=== PATIENT | male | born 1965 | race Caucasian/White ===

== ENCOUNTER 2019-09-05 14:24 | Observation (INO) | payer MEDICARE, SELFPAY ==
[2019-09-05] VITALS (26 sets, daily range): BP systolic 133–161; BP diastolic 76–107; PULSE 39–75; RESP 11–22; TEMP 36.2–36.8; O2SAT 82–100; BMI 19.4
--- NOTE | ~2019-09-05 | CT_ITS ---
EXAMINATION: CTA brain carotid DATE: 09/05/2019 15:49 INDICATION: Dizziness. TECHNIQUE: Computed tomographic angiography (CTA) of the head was performed without and with 100 mL O mnipaque-350 intravenous contrast. CTA of the neck was performed with intravenous contrast. Automated exposure control and iterative reconstruction technique were employed. The dose-length product was 1 579.55 mGy-cm. Maximum intensity projection and volume rendered 3D-reconstructions were created by sarah pfeiffer technologist on a separate workstation. COMPARISON: None. FINDINGS: HEAD CTA: There is chronic encephalomalacia in peripheral left temporal lobe. There is no intracrania l hemorrhage, acute infarction, or abnormal intracranial mass lesion. The ventricles are normal in si ze. There is mild mucosal thickening in the paranasal sinuses. The mastoid air cells are normal. The orbits are normal. The vertebral arteries are codominant. There is no significant stenosis of basilar artery or the posterior cerebral arteries. The posterior communicating arteries are normal. There is no significant stenosis of the intracranial internal carotid arteries or anterior or middle cerebral arteries. Anterior communicating artery is normal. There is no aneurysm. NECK CTA: There is mild emphysema. There are no pathologically enlarged lymph nodes. There is no sign ificant stenosis of the vertebral arteries. There is plaque in the proximal internal carotid arteries . There is 5% stenosis of the proximal right internal carotid artery relative to normal distal artery lumen diameter (NASCET criteria). There is 5% stenosis of the proximal left internal carotid artery relative to normal distal artery lumen diameter. There is severe cervical spondylosis. IMPRESSION: 1. Chronic encephalomalacia in peripheral left temporal lobe. 2. No aneurysm or significant intracranial arterial stenosis. 3. 5% stenosis of the proximal right internal carotid artery relative to normal distal artery lumen d iameter (NASCET criteria). 4. 5% stenosis of the proximal left internal carotid artery relative to normal distal artery lumen di ameter. Reviewed, dictated and finalized at location A. IMPRESSION: 1. Chronic encephalomalacia in peripheral left temporal lobe. 2. No aneurysm or significant intracranial arterial stenosis. 3. 5% stenosis of the proximal right internal carotid artery relative to normal distal artery lumen diameter (NASCET criteria). 4. 5% stenosis of the proximal left internal carotid artery relative to normal distal artery lumen diameter.
--- NOTE | 2019-09-05 14:32 | ECG_ITS ---
Measurements Intervals [place] Rate: 62 P: 79 ND: 181 QRS: 81 QRSD: 98 T: 65 QT: 393 QTc: 400 Interpretive Statements SINUS RHYTHM ATRIAL PREMATURE COMPLEX DELAYED PRECORDIAL R/S TRANSITION BASELINE ARTIFACT- I, II, III, AVR, AVL, AVF, V1 BORDERLINE ECG Electronically Signed On 09-05-2019 16:49:52 CDT by Hira Ram D.O.
--- NOTE | 2019-09-05 14:42 | ED.GENADULT ---
HPI - General Adult General Chief complaint: Dizziness <Neto Moe PA-C - Last Filed: 09/05/19 17:11> Stated complaint: Dizzy, Fall <Neto Moe PA-C - Last Filed: 09/05/19 17:11> Time Seen by Provider: 09/05/19 14:26 <Neto Moe PA-C - Last Filed: 09/05/19 17:11> Source: patient, family and old records reviewed <Neto Moe PA-C - Last Filed: 09/05/19 17:11> Mode of arrival: ambulatory <Neto Moe PA-C - Last Filed: 09/05/19 17:11> Limitations: no limitations <Neto Moe PA-C - Last Filed: 09/05/19 17:11> History of Present Illness HPI narrative: Patient is a 54-year-old male who presents to emergency department for evaluation of dizziness for the last several days noting that yesterday his dizziness resulted in a fall denies injuries related to the fall notes that he has felt lightheaded and dizzy with unsteady gait with some weakness in the legs patient denies similar occurrence in the past. Patient did just recently start his Tegretol back on Sunday and is followed by neurology Dr. Armenta. Patient on arrival to emergency department with family in no distress. Patient denies any pain but notes mild dizziness. Patient denies any recent illness or sick contact <Neto Moe PA-C - Last Filed: 09/05/19 17:11> Related Data Home medications: Home Medications Medication Instructions Recorded Confirmed carbamazepine [Tegretol XR] 400 mg PO BID 09/05/19 <Neto Moe PA-C - Last Filed: 09/05/19 17:11> Allergies/adverse reactions: Allergies Allergy/AdvReac Type Severity Reaction Status Date / Time Penicillins Allergy Unknown Verified 09/05/19 14:38 <Neto Moe PA-C - Last Filed: 09/05/19 17:11> Review of Systems Review of Systems: All systems reviewed & are unremarkable except as noted in HPI and below <Neto Moe PA-C - Last Filed: 09/05/19 17:11> [facility] Past Medical History Medical History: Medical History (Updated 09/05/19 @ 17:11 by Neto Moe PA-C) Seizures <Neto Moe PA-C - Last Filed: 09/05/19 17:11> Family History Family History: Family History (Updated 09/05/19 @ 18:18 by Rachel Johnston RN) Father Hypertension High cholesterol Mother High cholesterol <Neto Moe PA-C - Last Filed: 09/05/19 17:11> Social History Social History: Social History (Updated 09/05/19 @ 14:43 by Neto Moe PA-C) Smoking packs per day: 1.5 Smoking cigarettes per day: 30.0 Smoking status: Current every day smoker Tobacco type: cigarettes Drinks per week: 2 Substance use: current Substance use type: marijuana Living arrangements: with family Gender identity (if verbalized by the patient): Male Spiritual care concerns: No <Neto Moe PA-C - Last Filed: 09/05/19 17:11> Exam Narrative: Exam Narrative: GENERAL: Well-appearing, well-nourished, and in no acute distress. HEAD: Normocephalic, atraumatic. EYES: PERRLA and EOMI. ENT: Nares clear, no rhinorrhea or epistaxis. Mucous membranes moist. Oropharynx without tonsillar hypertrophy exudate or other lesions. NECK: Supple. No adenopathy or masses. No carotid bruits or JVD CHEST: Clear to auscultation. No respiratory distress. No wheezes rales or rhonchi HEART: Regular rate and rhythm. No murmur heard. Normal peripheral pulses. ABDOMEN: Soft, nontender, nondistended EXTREMITIES: Normal range of motion. No edema. SKIN: Warm, dry, no rash. NEURO: No focal deficits. Alert and oriented x3. Cranial nerves II through XII grossly intact. Normal speech. Cerebellar intact PSYCH: Normal mood and affect. <Neto Moe PA-C - Last Filed: 09/05/19 17:11> Course Course Emergency Course: Patient in the room aware of case findings treatment plan and diagnosis recommendations of his neurologist agreeing to stay in hospital <Neto Moe PA-C - Last Filed:
[2019-09-05] MEDS: SODIUM CHLORIDE 0.9% IV 1,000 ML 999 ML IV CONT (14:45)
[2019-09-05 14:58] LABS: Glucose Point of Care 81 (65-105)
[2019-09-05 14:59] LABS: Basophils Absolute Auto 0.1 K/mm3 (0.0-0.1); Basophils Percent Auto 0.8 % (0.2-1.2); Eosinophils Absolute Auto 0.1 K/mm3 (0-0.3); Eosinophils Percent Auto 1.3 % (0-4.4); Hematocrit 39.8 % (42.0-52.0); Hemoglobin 13.9 g/dL (14.0-18.0); Immature Granulocyte Absolute 0.01 K/mm3 (0.00-0.031); Immature Granulocyte Percent A 0.2 % (0-0.5); Lymphocytes Absolute Auto 2.01 K/mm3 (0.9-3.2); Lymphocytes Percent Auto 32.5 % (18.3-44.2); Mean Corpuscular HGB Conc 34.9 g/dl (32-36); Mean Corpuscular Volume 91.7 fl (80-100); Mean Platelet Volume 10.2 fl (7.4-10.4); Monocytes Absolute Auto 0.6 K/mm3 (0.1-0.6); Monocytes Percent Auto 10.3 % (2.6-8.5); Neutrophils Absolute Auto 3.4 K/mm3 (1.3-6.7); Neutrophils Percent Auto 54.9 % (45.5-73.1); Platelet Count Result 237 k/mm3 (150-375); Red Blood Count 4.34 M/mm3 (4.6-6.20); Red Cell Distribution Width 11.9 % (11.5-14.5); White Blood Count 6.2 K/mm3 (4.5-10.0)
[2019-09-05 15:13] LABS: Alanine Aminotransferase 11 U/L (4-50); Albumin Level 4.3 g/dL (3.5-5.1); Alkaline Phosphatase 94 U/L (38-126); Aspartate Amino Transferase 20 U/L (17-59); Bilirubin,Total 0.6 mg/dL (0.2-1.3); Blood Urea Nitrogen 10 mg/dL (9-20); Calcium 8.8 mg/dL (8.4-10.2); Carbon Dioxide 29 mmol/L (22-30); Chloride 101 mmol/L (98-107); Estimated CRCL calculation 67 ml/min; Estimated Glomerular Filt Rate > 60; Glucose 93 mg/dL (75-110); Lipase 47 U/L (23-300); Potassium 4.2 mmol/L (3.4-5.0); Sodium 133 mmol/L (137-145)
[2019-09-05 15:24] LABS: Troponin I < 0.012 ng/mL (0.000-0.034)
[2019-09-05 15:32] LABS: INR 1.1; Prothrombin Time 13.4 Seconds (11.1-14.7)
[2019-09-05 15:33] LABS: Partial Thromboplastin Time 28.6 SECONDS (22.3-36.8)
[2019-09-05 15:54] LABS: D Dimer 0.27 ug/mL (<0.48)
--- NOTE | 2019-09-05 16:47 | PC.NURSE ---
Per EDP via verbal order readback, ambulate Pt. to assess for unsteady gait or dizziness. Ambulated Pt, Pt. was not dizzy and stated feeling good on their feet. EDP notified and is aware.
--- NOTE | 2019-09-05 18:14 | ADMGEN ---
This patient, King Alarcon, was admitted to 2 Medical Room 249-01. Patient/family oriented to hospital policies and general routines including ID bracelet, bed and alarms, visiting hours, pain management, procedures, bathroom and other care routines, personal items, smoking policy, room service/diet, and visiting hours. Valuables list has been completed. Information on how to activate the Rapid Response Team has been discussed. Patient/Family are encouraged to report perceived risks to care and to ask questions if they do not understand what they are told or what they should do.
[2019-09-05] MEDS: LACTATED RINGERS 1,000 ML 125 ML IV CONT (18:47)
[2019-09-05] MEDS: FAMOTIDINE 20 MG/2 ML VIAL IV PUSH (21:03)
[2019-09-06] VITALS (7 sets, daily range): BP systolic 128–144; BP diastolic 69–84; PULSE 43–59; RESP 16–58; TEMP 36.1; O2SAT 99
[2019-09-06] MEDS: LACTATED RINGERS 1,000 ML 125 ML IV CONT ×2 (00:48→11:38)
--- NOTE | 2019-09-06 04:21 | PM.IMHP ---
H&P: HPI History of Present Illness Chief complaint: Off balance, blurred vision Narrative: Date and time of patient contact: 09/05/2019 at 10:15 p.m. King Alarcon is a 54 year old male with a past medical history of head trauma approximately 10 years ago with resultant brain injury and seizure disorder who presented to the ER with blurred vision and feeling off balance. He denies actually feeling like the room is spinning are peeling truly dizzy. He has noticed some fullness in his right ear but denies any ear pain. He has not had any loss of hearing. He does note that he has been on Tegretol for years. But he ran out of Tegretol about 3 or 4 weeks ago. When the patient had a new script for Tegretol sin and was sent in for a generic formulation. He was told by a doctor back in the s to never take the generic formulation. Subsequently he did not take the generic Tegretol and went approximately 3 weeks without his medications until he could get a new script from his neurologist Dr. Armenta. He restarted his Tegretol on Sunday. He denies having any seizures since 2005 at which time he had a tonic-clonic seizure. He reports that for the last several days he has had trouble focusing his eyes. He will at the blink several times to focus on anything. He will feel lightheaded when he stands up and feel off balance. Reports that the other day he was walking down the [place] and bounced off the [place] as he went down the [place] and caught himself on his hands. He did not hit his head. He noticed that his legs were kind of weak as well. He thought that part of this could also be due to him being a little bit dry. He admits that he only drinks Coca-Cola at home and does not drink much water or caffeine free fluids. He reports that over the last couple of years he has been having irregular bowel movements. He will sometimes go 2-3 days between bowel movements in the seemed to be more dry and hard. He denies any hematochezia or melena. He has never had a colonoscopy. He again attributes this to not drinking enough fluids. He has not tried any medications to treat his symptoms. He denies any palpitations. He does occasionally have shortness of breath especially if he gets an upper respiratory tract infection. But he has had no recent postnasal drip, cough congestion or sore throat. He denies any fevers or chills. He thinks that he probably has COPD but has never been tested for COPD and does not have inhalers at home. He still continues to smoke 1 and half packs of cigarettes per day and has done so since he was 13. He denies any headache. He reports he is not having any lightheadedness or visual changes at this time. He has not had any recent ill contacts. His appetite has been stable. He reports that his weight has been stable at about 125 lb for the last year. Prior to that his weight had dropped from 135 lb down to 115 lb and took, year so to gain it back. He does not have a primary care physician Review of Systems Review of Systems: Narrative: 12 systems were reviewed with pertinent positives and negatives per HPI. Except as documented in the HPI, all other systems were reviewed and are negative. 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
[2019-09-06] MEDS: FAMOTIDINE 20 MG/2 ML VIAL IV PUSH (09:56)
[2019-09-06] MEDS: ENOXAPARIN 40 MG/0.4 ML SYRINGE SUB-Q (09:56)
--- NOTE | 2019-09-06 11:28 | PC.NURSE ---
Patient angry and questioning when he will be discharged. Demanding he be seen by physician and sent home. Reinforced to patient we are awaiting results on tegretol level that was drawn 09/05/2019 in the afternoon and for the hospitalist to do rounds and see patient. Called Dr. Angel and updated him on patient's frustrations and requesting to be discharged home at this time. Per Dr. Angel he will be to floor within the hour to round on patient and see him at bedside.
--- NOTE | 2019-09-06 12:05 | PM.DS ---
DS: Summary Hospital Course Reason for hospitalization: dizziness Hospital Course: Admitted for evaluation of dizziness, blurred vision, possible double vision. CTA brain negative. Symptoms almost completely resolved, except for mild off balance feeling that did not impair his gait. Exam findings were worrisome for brainstem stroke, but patient wished to complete evaluation as outpatient. Time Spent with Patient Time attestation: Total time spent providing and/or coordinating discharge services: Time spent: Greater than 30 minutes Exam Narrative: Exam Narrative: HEENT: EOMI, PERRL, sclerae nonicteric, pharyngeal mucosa pink and intact NECK: No JVD, adenopathy, or thyromegaly CHEST: Clear to auscultation. Normal effort. HEART: NL S1/S2, regular, no murmur ABDOMEN: BS+, soft, nontender, no mass, no bruits EXTREMITIES: No cyanosis, edema, or clubbing NEUROLOGIC: CN with slight rightward deviation of tongue, otherwise intact and symmetric. Mild dysmetria RUE, none on left or on LE's. No dysdiadochokinesis. No fix or drift. Station and gait WNL. MUSCULOSKELETAL: Tone and strength symmetric. PSYCH: Alert. Oriented to person, place, and time. DS: Data Data Completed and Pending Labs on day of discharge: Labs from last 24 hours 09/05/19 09/05/19 09/05/19 15:15 14:55 14:38 WBC RBC Hgb Hct MCV MCH MCHC RDW Plt Count MPV Immature Gran % (Auto) Neut % (Auto) Lymph % (Auto) [place] % (Auto) Eos % (Auto) Baso % (Auto) Lymph # (Auto) [place] # (Auto) Eos # (Auto) Baso # (Auto) Abs Immat Gran (auto) Absolute Neuts (auto) Absolute Nucleated RBC Nucleated RBC % PT 13.4 INR 1.1 APTT 28.6 D-Dimer 0.27 Sodium 133 L Potassium 4.2 Chloride 101 Carbon Dioxide 29 BUN 10 Creatinine 0.90 Estim Creat Clear Calc 67 Estimated GFR > 60 Glucose 93 POC Capillary Glucose 81 Calcium 8.8 Total Bilirubin 0.6 AST 20 ALT 11 Alkaline Phosphatase 94 Troponin I < 0.012 Total Protein 7.0 Albumin 4.3 Lipase 47 Carbamazepine 09/05/19 09/05/19 14:37 14:37 WBC 6.2 RBC 4.34 L Hgb 13.9 L Hct 39.8 L MCV 91.7 MCH 32.0 MCHC 34.9 RDW 11.9 Plt Count 237 MPV 10.2 Immature Gran % (Auto) 0.2 Neut % (Auto) 54.9 Lymph % (Auto) 32.5 [place] % (Auto) 10.3 H Eos % (Auto) 1.3 Baso % (Auto) 0.8 Lymph # (Auto) 2.01 [place] # (Auto) 0.6 Eos # (Auto) 0.1 Baso # (Auto) 0.1 Abs Immat Gran (auto) 0.01 Absolute Neuts (auto) 3.4 Absolute Nucleated RBC 0.0 Nucleated RBC % 0.0 PT INR APTT D-Dimer Sodium Potassium Chloride Carbon Dioxide BUN Creatinine Estim Creat Clear Calc Estimated GFR Glucose POC Capillary Glucose Calcium Total Bilirubin AST ALT Alkaline Phosphatase Troponin I Total Protein Albumin Lipase Carbamazepine Pending Discharge Plan Discharge Consulting providers: Neto Moe ; John Armenta ; Cindy Johnson ; Jaycob Dickey V. ; Hira Ram Discharging Clinician: Prabhakar Angel Patient Disposition: Home, Self-Care Activity: no driving Diet: regular Discharge Instructions: Return to emergency department if symptoms recur. Avoid driving, climbing, power tools, swimming, bath tubs and any other activities that would put you at increased risk of injury should you pass out. Patient Instructions: How to Stop Smoking (DC), Dizziness (ED) Stand Alone Forms: General Discharge Information Follow-up/Referrals: John Armenta MD [Primary Care Provider] - Call for Appointment Discharge Medications: New aspirin 81 mg Tablet,Delayed Release (Dr/Ec) 81 mg PO QAM Qty: 30 RF: 0 Continued carbamazepine [Tegretol XR] 400 mg Tablet Extended Release 12 Hr 400 mg PO BID RF: 0 Other Ambulatory Orders: MR brain/brain stem wo/w con (Routine) Timeframe: 2 Days L
[2019-09-06] MEDS: ASPIRIN 81 MG ENTERIC TABLET PO (12:51)
--- NOTE | 2019-09-06 12:52 | PC.NURSE ---
Patient refused assistance to hospital entrance for discharge. Wheelchair or escort offered and patient refused. Ensured patient leaving with discharge packet.
--- NOTE | 2019-10-14 12:13 | WPDNEURCNPN ---
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 He has smoked up to 1.5 packs of cigarettes per day since he was 13 years old. He drinks 1 or 2 alcoholic beverages a couple of times a month. He denies any illicit substance use. He lives at home with his of 26 years. He has 1 son who is in his 20s and is healthy. He has 1 grandchild that is 1.5 years old. 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 Gender identity (if verbalized by the patient): Male Spiritual care concerns: No Meds Home Medications and Allergies Home Medications Medication Instructions Recorded Confirmed Type carbamazepine [Tegretol XR] 400 mg PO BID 09/05/19 09/05/19 History aspirin 81 mg PO QAM #30 tablet 09/06/19 Rx Allergies Allergy/AdvReac Type Severity Reaction Status Date / Time Penicillins Allergy Unknown Verified 09/05/19 14:38 Results Labs CBC & Chem 7: 09/05/19 14:37 09/05/19 14:38 Quality VTE Prophylaxis VTE prophylaxis: pharmacologic ordered (Lovenox 40 mg subq daily.)
--- NOTE | 2019-10-14 12:25 | WPDNEUROPN ---
Progress Note: A&P Additional Plan not seen prior to discharge Objective Data Meds/Results Radiology Results: ITS Impressions Head/Neck CTA 09/05/19 15:58 IMPRESSION: 1. Chronic encephalomalacia in peripheral left temporal lobe. 2. No aneurysm or significant intracranial arterial stenosis. 3. 5% stenosis of the proximal right internal carotid artery relative to normal distal artery lumen diameter (NASCET criteria). 4. 5% stenosis of the proximal left internal carotid artery relative to normal distal artery lumen diameter. Quality VTE Prophylaxis VTE prophylaxis: pharmacologic ordered (Lovenox 40 mg subq daily.)
== END 2019-09-06 12:52 | disposition home or self-care (01) ==
LOC: ANHED 17:14 → ANH2MED 19:07
PROVIDERS: Emergency Medicine Emergency Medical Services; Admitting Provider Family Medicine; Emergency Provider Emergency Medicine; PCP Psychiatry & Neurology Neurology; Visit Provider Internal Medicine
DX: R42 Dizziness and giddiness (principal); H53.8 Other visual disturbances; R26.81 Unsteadiness on feet; R00.1 Bradycardia, unspecified; G40.909 Epilepsy, unspecified, not intractable, without status epilepticus; R29.6 Repeated falls; F17.210 Nicotine dependence, cigarettes, uncomplicated; Z87.820 Personal history of traumatic brain injury; Z79.899 Other long term (current) drug therapy
CPT/HCPCS: 36415; 70496; 70498; 80053; 80156; 82948; 83690; 84484; 85025; 85380; 85610; 85730; 93005; 96361; 96372; 96374; 96376; 99285; A9270; G0378; J1650; J7030; J7120; Q9967